=== PATIENT | female | born 1990 | race African-American/Black ===

== ENCOUNTER 2019-10-26 13:38 | Emergency (ER) | payer OTHER ==
[~2019-10-26] VITALS: Ht 170.2 cm; Wt 76.8 kg
[2019-10-26 14:19] LABS: URINE BILIRUBIN - DIPSTICK NEGATIVE (NEGATIVE); URINE BLOOD DIPSTICK NEGATIVE (NEGATIVE); URINE COLOR YELLOW; URINE GLUCOSE - DIPSTICK NEGATIVE (NEGATIVE); URINE KETONE NEGATIVE (NEGATIVE); URINE LEUK ESTERASE NEGATIVE (NEGATIVE); URINE NITRITE - DIPSTICK NEGATIVE (Negative); URINE PH 6.5 (4.5-8.0); URINE PROTEIN - DIPSTICK NEGATIVE (NEG-TRACE); URINE SPECIFIC GRAVITY 1.025; URINE UROBILINOGEN - DIPSTICK 0.2 E.U./dL (0.2)
[2019-10-26 15:06] VITALS: BP 146/84
== END 2019-10-26 15:06 | disposition home or self-care (01) ==
LOC: ED 13:38
DX: R30.0 Dysuria (principal); R35.0 Frequency of micturition; R39.15 Urgency of urination